=== PATIENT | female | born 1950 | race Caucasian/White ===

== ENCOUNTER 2017-04-07 10:11 | Emergency (ER) | payer OTHER ==
[~2017-04-07] VITALS: Ht 157.5 cm; Wt 101.0 kg
[2017-04-07 10:16] VITALS: Ht 157.5 cm; Wt 101.0 kg
[2017-04-07] MEDS ORDERED: CYCL-319 PO (10:43)
[2017-04-07] MEDS ORDERED: HYDR-906 PO (10:43)
--- NOTE | 2017-04-07 10:52 | ERD ---
ER Documentation Chief Complaint Date/Time DATE: 04/07/17 TIME: 10:46 Chief Complaint HAS BURNING ON R KNEE AND R LOWER BACK HPI This patient is a 67-year-old female who presents with burning pain in her right knee. She states that this is chronic and has been going on for several years however yesterday it began to get worse and the pain began to radiate upwards to the right side of her lower back. She denies any trauma. She denies any numbness or tingling. She denies any bowel or bladder incontinence. She denies any dysuria hematuria or increased urinary frequency. She is ambulatory. She denies any recent travel or swelling of her leg. She denies any chest pain or shortness of breath. She has been taking Advil 400 mg which she states helps temporarily. She states she came to the emergency room today because she wants something a little bit stronger as the pain last night made it difficult for her to sleep and she is unable to see her doctor for several weeks. ROS All systems reviewed and are negative except as per history of present illness. Medications Home Meds Active Scripts Hydrocodone/Acetaminophen ([place] 5-325 Tablet) 1 Each Tablet, 1 TAB PO Q6H Y for PAIN, #20 TAB Prov:LYNSEY ROWELL PA-C 04/07/17 Cyclobenzaprine Hcl* (Cyclobenzaprine Hcl*) 10 Mg Tablet, 10 MG PO QHS, #20 TAB Prov:LYNSEY ROWELL PA-C 04/07/17 PMhx/Soc Medical and Surgical Hx: pt denies Medical Hx, pt denies Surgical Hx History of Surgery: No Anesthesia Reaction: No Hx Neurological Disorder: No Hx Respiratory Disorders: No Hx Cardiac Disorders: No Hx Psychiatric Problems: No Hx Miscellaneous Medical Probl: No Hx Alcohol Use: No Hx Substance Use: No Hx Tobacco Use: No Smoking Status: Never smoker FmHx Family History: No diabetes Physical Exam Vitals Vital Signs Date Time Temp Pulse Resp B/P Pulse Ox O2 Delivery O2 Flow Rate FiO2 04/07/17 10:16 98.8 97 18 159/76 100 Physical Exam INITIAL VITAL SIGNS: Reviewed by me GENERAL: Awake, alert and oriented x 4, well appearing, nontoxic, speaking in full sentences. No acute distress HEAD: Atraumatic NECK: Supple. No masses. Full range of motion. No meningismus. No midline tenderness. RESPIRATORY: Clear to auscultation bilaterally. Symmetric chest wall rise. No wheezing or rales. No accessory muscle use. CV: Regular rate and rhythm. No murmurs, rubs, or gallops. ABDOMEN: Soft, non-distended. Nontender. Negative [place]. Negative McBurneys point tenderness. No CVA tenderness bilaterally. No guarding. No rebound. EXTREMITIES: Right knee: No erythema, no edema, nontender, no bony abnormalities , full range of motion, popliteal pulse 2+,. No unilateral swelling of the right lower extremity, no tenderness redness or warmth over the calf BACK: No midline tenderness to palpation. No step-offs, no bony abnormalities. No paraspinal tenderness, strong steady gait Procedures/MDM Patient has right knee pain that radiates to her lower back. She is not diabetic. Patient's blood pressure was elevated (>120/80) but appears stable without evidence of hypertension emergency or urgency. The patient was counseled about the risks of hypertension and urged to pursue outpatient monitoring and therapy within a week with their primary care physician. Otherwise her vital signs are normal. She is ambulatory and neurovascular intact. The differential diagnosis includes but is not limited to muscle strain , ligament strain, contusion, arthritis, discogenetic disease, non- musculoskeletal, cauda equina syndrome, cord compression, abscess and others. She has no red flags including bowel or bladder incontinence or saddle anesthesia. I do believe her pain is most likely musculoskeletal. I offered x- rays but she declined. She would like to try a stronger pain medication will help her sleep at night. I gave her a prescription for [place] and Flexeril and explained her she can continue to take Tylenol and Advil throughout the day. Patient counseled regarding my diagnostic impression and care plan. Prior to discharge all questions answered. Pt agrees with treatment plan and understands strict return precautions. Pt is instructed to follow up with primary care provider within 24-48 hours. Precautionary instructions provided including instructions to return to the ER if not improving or for any worsening or changing symptoms or concerns. Departure Diagnosis: Primary Impression: Leg pain Condition: Stable Patient Instructions: Myalgias Additional Instructions: Llame al doctor MONISHA y neisha daniella SHEILA PARA DENTRO DE 1-2 KUO.Dgale a la secretaria que nosotros le instruimos hacer esta sheila.Avise o llame si grewal condicin se empeora antes de la sheila. Regresa aqui si peor o no mejor. LYNSEY ROWELL PA-C Apr 07, 2017 10:52
== END 2017-04-07 11:56 | disposition home or self-care (01) ==
LOC: FTE 10:11
DX: M25.561 Pain in right knee (principal)
CPT/HCPCS: 99284